=== PATIENT | female | born 1960 | race Caucasian/White ===

== ENCOUNTER 2017-12-08 17:46 | Inpatient (IN) | payer MEDICARE ==
[2017-12-08 18:00] LABS: BASO % 1 % (0-3); EOS # 0.1 x10^3/uL (0.0-0.7); EOS % 1 % (0-3); HEMATOCRIT 43.1 % (36.0-47.0); HEMOGLOBIN 15.1 g/dL (12.0-15.5); LYMPH # 3.8 x10^3/uL (1.0-4.8); LYMPH % 47 % (24-48); MEAN CORPUSCULAR HEMOGLOBIN 31 pg (25-35); MEAN CORPUSCULAR HGB CONC 35 g/dL (31-37); MEAN CORPUSCULAR VOLUME 89 fL (79-100); MONO # 0.4 x10^3/uL (0.0-1.1); MONO % 5 % (0-9); NEUT # 3.8 x10^3uL (1.8-7.7); NEUT % 47 % (31-73); PLATELET COUNT 291 x10^3/uL (140-400); RED BLOOD COUNT 4.84 x10^6/uL (3.50-5.40); RED CELL DISTRIBUTION WIDTH 13.2 % (11.5-14.5); WHITE BLOOD COUNT 8.1 x10^3/uL (4.0-11.0)
[2017-12-08] MEDS ORDERED: ONDANSETRON PF 4 MG/2 ML VIAL. IV PRN (18:00)
[2017-12-08 18:04] VITALS: BP 147/91
[2017-12-08 18:08] LABS: ALBUMIN 3.7 g/dL (3.4-5.0); ALBUMIN/GLOBULIN RATIO 1.2 (1.0-1.7); CALCIUM 8.9 mg/dL (8.5-10.1); CREATININE 0.8 mg/dL (0.6-1.0); GFR 73.4; TOTAL BILIRUBIN 0.4 mg/dL (0.2-1.0); TOTAL PROTEIN 6.8 g/dL (6.4-8.2)
--- NOTE | 2017-12-08 18:08 | EKG ---
[address] [address] Test Date: 2017-12-08 Test Time: 17:00:14 Pat Name: CARLA MCRAE Department: Room: [place] [address] Gender: F Specialty Molder: : 1960 Requested By: YASMANI SIMS Order Number: [id number] Reading MD: Michele Tom MD Measurements Intervals [place] Rate: 63 P: 30 PA: 152 QRS: 7 QRSD: 88 T: 54 QT: 394 QTc: 406 Interpretive Statements SINUS RHYTHM Electronically Signed On 12-09-2017 7:52:22 CDT by Michele Tom MD
[2017-12-08] MEDS ORDERED: CHLO25TA PO (18:12)
[2017-12-08] MEDS ORDERED: METO50TA4 PO (18:12)
[2017-12-08] MEDS ORDERED: ZOLP10TA4 PO (18:12)
[2017-12-08] MEDS ORDERED: AMLO5TAB2 PO (18:12)
[2017-12-08] MEDS ORDERED: WARF-31 PO (18:12)
[2017-12-08] MEDS ORDERED: MORP60CA17 PO (18:12)
[2017-12-08] MEDS ORDERED: CLON1TAB4 PO (18:12)
[2017-12-08] MEDS ORDERED: WARF2TAB96 PO (18:12)
[2017-12-08] MEDS ORDERED: POTA10TA10 PO (18:12)
[2017-12-08] MEDS ORDERED: AMOX50TA PO (18:12)
[2017-12-08] MEDS ORDERED: CLON0.5T11 PO (18:12)
[2017-12-08] MEDS ORDERED: amLODIPine BESYLATE 5 MG TABLET PO SCH (18:45)
[2017-12-08] MEDS ORDERED: METOPROLOL SUCC 24HR ER 50 MG TAB.ER.24H. PO SCH (18:45)
[2017-12-08 19:00] VITALS: BP 118/70
[2017-12-08] MEDS: MORPHINE ER 30 MG TABLET.ER PO SCH (19:05)
[2017-12-08 19:30] LABS: BILIRUBIN,URINE NEG (NEG); CLARITY,URINE HAZY; COLOR,URINE STRAW; GLUCOSE,URINE NEG (NEG); NITRITE,URINE NEG (NEG); UROBILINOGEN,URINE 0.2 mg/dL (0.2 mg/dL)
[2017-12-08 19:31] LABS: BACTERIA,URINE 0 /HPF (0-FEW); SQUAMOUS EPITHELIAL CELL,UR OCC /LPF
[2017-12-08 20:00] VITALS: BP 128/75
[2017-12-08 21:00] VITALS: BP 104/76
[2017-12-08] MEDS ORDERED: clonazePAM 1 MG TABLET PO SCH (21:00)
[2017-12-08] MEDS ORDERED: ZOLPIDEM 5 MG TABLET. PO SCH (21:00)
[2017-12-08] MEDS ORDERED: AMOXAPINE 50 MG PO SCH (21:00)
[2017-12-08 22:00] VITALS: BP 102/71
[2017-12-08] MEDS: ACETAMINOPHEN 500 MG TABLET PO PRN (22:11)
[2017-12-08 23:00] VITALS: BP 92/65
[2017-12-09] VITALS (11 sets, daily range): BP systolic 86–107; BP diastolic 56–69
[2017-12-09] MEDS: MORPHINE ER 30 MG TABLET.ER PO SCH (05:32)
[2017-12-09] MEDS: POTASSIUM CHLORIDE 20 MEQ TABLET.ER. PO SCH ×2 (07:44→11:36)
[2017-12-09] MEDS: ACETAMINOPHEN 500 MG TABLET PO PRN (07:44)
--- NOTE | 2017-12-09 07:52 | RAD ---
Chest, 2 views, 12/08/2017: HISTORY: Chest tightness, heart palpitations, abnormal EKG The heart size and pulmonary vascularity are normal. There are numerous calcified granulomata in both lungs. No pulmonary infiltrate is seen. There is no evidence of pleural fluid. Mild spurring is present in the spine. An inferior vena cava filter is noted in the abdomen. IMPRESSION: 1. Old healed granulomatous disease. 2. No acute cardiopulmonary abnormality is detected. Electronically signed by: Elian Mata MD (12/09/2017 7:49 AM) [facility]
[2017-12-09] MEDS ORDERED: CHLORTHALIDONE 25 MG TABLET PO SCH (09:00)
[2017-12-09] MEDS ORDERED: clonazePAM 0.5 MG TABLET PO SCH (09:00)
[2017-12-09 09:42] LABS: ALBUMIN 3.4 g/dL (3.4-5.0); ALBUMIN/GLOBULIN RATIO 1.3 (1.0-1.7); CREATININE 0.8 mg/dL (0.6-1.0); GFR 73.4; POTASSIUM 3.2 mmol/L (3.5-5.1); TOTAL BILIRUBIN 0.6 mg/dL (0.2-1.0); TOTAL PROTEIN 6.1 g/dL (6.4-8.2)
[2017-12-09] MEDS ORDERED: ELECTROLYTE (ICU) PROTOCOL. MC PRN (09:45)
--- NOTE | 2017-12-09 10:05 | PDOC2 ---
CONSULT Date of Admission DATE: 12/09/17 TIME: 10:05 Reason for Consult: chest pain History of Present Illness Ms Rodriguez is a 57 year old female who was directly admitted to the hospital with complaints of dyspnea, chest pain and PVCs. She reports that her symptoms started early November with pneumonia. She states that she continues to have dyspnea on exertion with chest heaviness that resolves with rest. She denies any symptoms at rest. She also reports feeling skipped heart beats and was told she was having PVCs on EKG at PCP office. She denies any lightheadedness, dizziness or syncope. She reports increased depression and anxiety because she was having no issues prior to the pneumonia and thinks it is taking way too long to return to her baseline. 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")) Pulmonary: Other (histoplasmosis) CENTRAL NERVOUS SYSTEM: Migraine GI: GERD Heme/Onc: Other (Hypercoagulable state (she is unsure Protein c,s or factor 5 deficiency)) Psych: Anxiety, Depression Past Surgical History: Appendectomy, Cholecystectomy, Hysterectomy, Other ( meniscectomy, IVC filter placement, left iliac vein stenting) Family History no history of premature cardiac disease Social History 1/2 ppd smoker, no significant ETOH, no Illicit drugs Current Medications Current Medications Ondansetron HCl (Zofran) 4 mg PRN Q8HRS PRN IV NAUSEA/VOMITING; Start 12/08/17 at 18:00 Clonazepam (KlonoPIN) 0.5 mg DAILY PO Last administered on 12/09/17at 07:44; Start 12/09/17 at 09:00 Amlodipine Besylate (Norvasc) 5 mg DAILY@1700 PO Last administered on at 19:06; Start 12/08/17 at 18:45 Non-Formulary Medication (Amoxapine ) 50 mg HS PO Last administered on at 20:40; Start 12/08/17 at 21:00 Chlorthalidone (Thalitone) 25 mg DAILY PO Last administered on 12/09/17at 07:44 ; Start 12/09/17 at 09:00 Clonazepam (KlonoPIN) 1 mg QHS PO Last administered on 12/08/17at 20:40; Start 12/08/17 at 21:00 Metoprolol Succinate (Toprol Xl) 50 mg DAILY@1700 PO Last administered on at 19:05; Start 12/08/17 at 18:45 Morphine Sulfate (Ms Contin) 60 mg BID@0500,1700 PO Last administered on at 05:32; Start 12/08/17 at 18:45 Potassium Chloride (Klor-Con) 20 meq TIDWMEALS PO Last administered on at 07:44; Start 12/09/17 at 08:00 Non-Formulary Medication (Warfarin Sodium ) 1 mg DAILY16 PO ; Start 12/09/17 at 16:00; Stop 12/09/17 at 16:00; Status DC Non-Formulary Medication (Warfarin Sodium ) 1 tab DAILY16 PO ; Start 12/09/17 at 16:00; Stop 12/09/17 at 16:00; Status DC Zolpidem Tartrate (Ambien) 10 mg QHS PO Last administered on 12/08/17at 20:40; Start 12/08/17 at 21:00 Warfarin Sodium (Coumadin Per Pharmacy) 1 each PRN DAILY PRN MC SEE COMMENTS; Start 12/08/17 at 18:45 Acetaminophen (Tylenol) 500 mg PRN Q6HRS PRN PO PAIN / TEMP Last administered on 12/09/17at 07:44; Start 12/08/17 at 22:15 Info (Icu Electrolyte Protocol) 1 ea CONT PRN PRN MC PER PROTOCOL; Start at 09:45 Active Scripts Active Reported Zolpidem Tartrate 10 Mg Tablet 1 Tab PO QHS Morphine Sulfate Er (Morphine Sulfate) 60 Mg Cap.er.pel 60 Mg PO BID Chlorthalidone 25 Mg Tablet 1 Tab PO DAILY Clonazepam 1 Mg Tablet 1 Tab PO QHS Clonazepam 0.5 Mg Tablet 1 Tab PO DAILY Potassium Chloride 10 Meq Tablet.er 20 Meq PO TID Toprol Xl (Metoprolol Succinate) 50 Mg Tab.er.24h 1 Tab PO DAILY16 Warfarin Sodium 2 Mg Tablet 1 Mg PO DAILY16 Warfarin Sodium 5 Mg Tablet 1 Tab PO DAILY16 Amoxapine 50 Mg Tablet 50 Mg PO HS Amlodipine Besylate 5 Mg Tablet 1 Tab PO DAILY16 Allergies: Coded Allergies: ciprofloxacin (Verified Allergy, Mild, Unknown, 12/08/17) lisinopril (Verified Allergy, Mild, Unknown, 12/08/17) omeprazole (Verified Allergy, Mild, Unknown, 12/08/17) Review of System as per HPI or negative General: Alert, Oriented X3, Cooperative, No acute distress HEENT: Atraumatic, EOMI, Mucous membr. moist/pink Lungs: Other (decreased bases otherwise clear) Heart: Regular rate, Normal S1, Normal S2, Other (no gallops, clicks or rubs) Abdomen: Normal bowel sounds, Soft, No tenderness Extremities: No cyanosis, Normal pulses Neuro: Normal speech, Strength at 5/5 X4 ext Psych/Mental Status: Mental status NL, Mood NL VITALS Vital Signs Date Time Temp Pulse Resp B/P (MAP) Pulse Ox O2 Delivery O2 Flow Rate FiO2 12/09/17 09:52 70 93/69 (77) 12/09/17 09:35 96 Room Air 12/09/17 07:45 98.0 12/09/17 06:00 18 12/08/17 18:04 0.0 Labs Laboratory Tests Test 12/08/17 17:30 12/08/17 18:42 12/09/17 05:53 White Blood Count 8.1 x10^3/uL (4.0-11.0) Red Blood Count 4.84 x10^6/uL (3.50-5.40) Hemoglobin 15.1 g/dL (12.0-15.5) Hematocrit 43.1 % (36.0-47.0) Mean Corpuscular Volume 89 fL (79-100) Mean Corpuscular Hemoglobin 31 pg (25-35) Mean Corpuscular Hemoglobin Concent 35 g/dL (31-37) Red Cell Distribution Width 13.2 % (11.5-14.5) Platelet Count 291 x10^3/uL (140-400) Neutrophils (%) (Auto) 47 % (31-73) Lymphocytes (%) (Auto) 47 % (24-48) Monocytes (%) (Auto) 5 % (0-9) Eosinophils (%) (Auto) 1 % (0-3) Basophils (%) (Auto) 1 % (0-3) Neutrophils # (Auto) 3.8 x10^3uL (1.8-7.7) Lymphocytes # (Auto) 3.8 x10^3/uL (1.0-4.8) Monocytes # (Auto) 0.4 x10^3/uL (0.0-1.1) Eosinophils # (Auto) 0.1 x10^3/uL (0.0-0.7) Basophils # (Auto) 0.0 x10^3/uL (0.0-0.2) Prothrombin Time 38.2 SEC (9.4-11.4) 31.0 SEC (9.4-11.4) Prothromb Time International Ratio 4.1 (0.9-1.1) 3.3 (0.9-1.1) D-Dimer (Lizbeth) < 0.19 mg/L (0.00-0.50) Nasal Screen MRSA (PCR) Negative (Negative) Sodium Level 128 mmol/L (136-145) 128 mmol/L (136-145) Potassium Level 3.0 mmol/L (3.5-5.1) 3.2 mmol/L (3.5-5.1) Chloride Level 91 mmol/L (98-107) 91 mmol/L (98-107) Carbon Dioxide Level 32 mmol/L (21-32) 33 mmol/L (21-32) Anion Gap 5 (6-14) 4 (6-14) Blood Urea Nitrogen 11 mg/dL (7-20) 11 mg/dL (7-20) Creatinine 0.8 mg/dL (0.6-1.0) 0.8 mg/dL (0.6-1.0) Estimated GFR (Cockcroft-Gault) 73.4 73.4 BUN/Creatinine Ratio 14 (6-20) 14 (6-20) Glucose Level 87 mg/dL (70-99) 84 mg/dL (70-99) Lactic Acid Level 1.1 mmol/L (0.4-2.0) Calcium Level 8.9 mg/dL (8.5-10.1) 9.0 mg/dL (8.5-10.1) Magnesium Level 2.0 mg/dL (1.8-2.4) Total Bilirubin 0.4 mg/dL (0.2-1.0) 0.6 mg/dL (0.2-1.0) Aspartate Amino Transf (AST/SGOT) 26 U/L (15-37) 26 U/L (15-37) Alanine Aminotransferase (ALT/SGPT) 31 U/L (14-59) 29 U/L (14-59) Alkaline Phosphatase 66 U/L (46-116) 64 U/L (46-116) Creatine Kinase 79 U/L (26-192) Troponin I Quantitative < 0.017 ng/mL (0-0.055) Total Protein 6.8 g/dL (6.4-8.2) 6.1 g/dL (6.4-8.2) Albumin 3.7 g/dL (3.4-5.0) 3.4 g/dL (3.4-5.0) Albumin/Globulin Ratio 1.2 (1.0-1.7) 1.3 (1.0-1.7) Urine Collection Type Unknown Urine Color Straw Urine Clarity Hazy Urine pH 7.0 Urine Specific [place] 1.010 Urine Protein Neg (NEG-TRACE) Urine Glucose (UA) Neg mg/dL (NEG) Urine Ketones (Stick) Neg mg/dL (NEG) Urine Blood Mod (NEG) Urine Nitrite Neg (NEG) Urine Bilirubin Neg (NEG) Urine Urobilinogen Dipstick 0.2 mg/dL (0.2 mg/dL) Urine Leukocyte Esterase Small (NEG) Urine RBC 1-2 /HPF (0-2) Urine WBC 5-10 /HPF (0-4) Urine Squamous Epithelial Cells Occ /LPF Urine Bacteria 0 /HPF (0-FEW) Images CXR - IMPRESSION: 1. Old healed granulomatous disease. 2. No acute cardiopulmonary abnormality is detected. EKG - sinus rhythm without acute abn Assessment/Plan 1. Exertional chest pain - CE negative x 1 set. No acute abn on EKG. Suggest repeat CE, check echo, check lipids, and plan for MPI to evaluate for IHD. 2. Hypertension - currently mildly hypotensive. Hold antihypertensives. 3. Recent pneumonia - CXR as above. Maintaining Sao2 on room air. 4. hyponatremia - check urine lytes and osmolality. 5. hypokalemia - stop chlorthalidone and start aldactone (may no longer require diuretic for HTN). Replace potassium and repeat BMP. 6. May Thurner syndrome s/p iliac vein stenting and hypercoagulable state - on warfarin with therapeutic INR. Consider change to NOAC. (Check which is cost effective for patient) FLORIAN BOATENG APRN Dec 09, 2017 10:05
[2017-12-09] MEDS ORDERED: NON FORMULARY ITEM (Warfarin Sodium 1 TAB) PO SCH (16:00)
[2017-12-09] MEDS ORDERED: WARFARIN SODIUM 1 MG PO SCH (16:00)
[2017-12-10] MEDS ORDERED: SPIRONOLACTONE 25 MG TABLET PO SCH (09:00)
== END 2017-12-09 12:48 | disposition short-term general hospital (02) | DRG 311 ==
LOC: ICU 17:46
PROVIDERS: ADMIT Family Medicine; ATTEND Family Medicine
DX: I20.8 Other forms of angina pectoris (principal); D68.59 Other primary thrombophilia; E87.1 Hypo-osmolality and hyponatremia; E87.6 Hypokalemia; F32.9 Major depressive disorder, single episode, unspecified; F41.9 Anxiety disorder, unspecified; G43.909 Migraine, unspecified, not intractable, without status migrainosus; F17.210 Nicotine dependence, cigarettes, uncomplicated; I49.3 Ventricular premature depolarization; K21.9 Gastro-esophageal reflux disease without esophagitis; I10 Essential (primary) hypertension; Z87.01 Personal history of pneumonia (recurrent); Z90.710 Acquired absence of both cervix and uterus; Z90.49 Acquired absence of other specified parts of digestive tract; Z88.1 Allergy status to other antibiotic agents; Z88.8 Allergy status to other drugs, medicaments and biological substances; Z79.899 Other long term (current) drug therapy
CPT/HCPCS: 36415; 71046; 80053; 80061; 81001; 82550; 83605; 83735; 84484; 85025; 85379; 85610; 87040; 87641; 93005

== ENCOUNTER 2018-07-15 08:22 | Emergency (ER) | payer MEDICARE ==
[~2018-07-15] VITALS: Ht 165.1 cm; Wt 64.9 kg
[~2018-07-15 08:22] MED LIST: AMLO5TAB10 PO; AMOX50TA PO; CHLO25TA9 PO; CLON0.5T11 PO; CLON1TAB11 PO; METO50TA4 PO; MORP60CA17 PO; POTA10TA10 PO; WARF-31 PO; WARF2TAB96 PO; ZOLP10TA4 PO
[2018-07-15] MEDS ORDERED: IV NORMAL SALINE 1,000ML 1,000 ML IV ONE (08:45)
--- NOTE | 2018-07-15 09:13 | PHYS DOC ---
Adult General Chief Complaint Chief Complaint: DIARRHEA HPI HPI 57-year-old female presents with diarrhea. The patient has had intermittent diarrhea for several months. She has been managed by her primary care physician. The last 2 weeks she has had bouts of very runny diarrhea with little small, formed stool. She was on Flagyl until 2 days ago and the diarrhea slowed down but did not go away. So she stopped the Flagyl it came back as watery diarrhea. Patient has diffuse lower abdominal pain. She is unable to eat very well due to the pain. She has nausea, but no vomiting. She denies fever or chills. She has not been camping. She does not have well water. 2 studies have not been done. All of her intermittent diarrhea started after having a colonoscopy last fall. Review of Systems Review of Systems Constitutional: Denies fever or chills [] Eyes: Denies change in visual acuity, redness, or eye pain [] HENT: Denies nasal congestion or sore throat [] Respiratory: Denies cough or shortness of breath [] Cardiovascular: No additional information not addressed in HPI [] GI: Lower abdominal pain, nausea, diarrhea [] : Denies dysuria or hematuria [] Musculoskeletal: Denies back pain or joint pain [] Integument: Denies rash or skin lesions [] Neurologic: Denies headache, focal weakness or sensory changes [] Endocrine: Denies polyuria or polydipsia [] All other systems were reviewed and found to be within normal limits, except as documented in this note. Current Medications Current Medications Current Medications Medications (Trade) Dose Ordered Sig/Elroy Start Time Stop Time Status Last Admin Dose Admin Iohexol (Omnipaque 300 Mg/ml) 75 ml 1X ONCE 07/15/18 09:15 07/15/18 09:16 Sodium Chloride 1,000 ml @ 1,000 mls/hr 1X ONCE 07/15/18 08:45 07/15/18 09:44 Allergies Allergies Allergies Coded Allergies Type Severity Reaction Last Updated Verified ciprofloxacin Allergy Mild Unknown 07/15/18 Yes lisinopril Allergy Mild Unknown 07/15/18 Yes omeprazole Allergy Mild Unknown 07/15/18 Yes Physical Exam Physical Exam Constitutional: Well developed, well nourished, no acute distress, non-toxic appearance. [] HENT: Normocephalic, atraumatic, bilateral external ears normal, oropharynx moist, no oral exudates, nose normal. [] Eyes: PERRLA, EOMI, conjunctiva normal, no discharge. [] Neck: Normal range of motion, no tenderness, supple, no stridor. [] Cardiovascular:Heart rate regular rhythm, no murmur [] Lungs & Thorax: Bilateral breath sounds clear to auscultation [] Abdomen: Tenderness across the lower abdomen, soft, no rebound or guarding[] Skin: Warm, dry, no erythema, no rash. [] Back: No tenderness, no CVA tenderness. [] Extremities: No tenderness, no cyanosis, no clubbing, ROM intact, no edema. [] Neurologic: Alert and oriented X 3, normal motor function, normal sensory function, no focal deficits noted. [] Psychologic: Affect normal, judgement normal, mood normal. [] EKG EKG [] Radiology/Procedures Radiology/Procedures [] Impressions: CT ABD PELV W/ IV CONTRST ONLY Indication: Lower abdominal pain, diarrhea, history of diverticulitis Technique: Postcontrast CT imaging was performed of the abdomen pelvis, multiplanar reconstruction images submitted. One or more of the following individualized dose reduction techniques were utilized for this examination: 1. Automated exposure control 2. Adjustment of the mA and/or kV according to patient size 3. Use of iterative reconstruction technique. Comparison: Pelvis CT December 17, 2005, no previous abdomen CT available Findings: There are some calcified nodules of the visualized lung bases bilaterally. There has been cholecystectomy. No significant focal abnormality is identified of the pancreas, spleen, liver. There is no adrenal nodularity. Both kidneys enhance. There is right renal pelviectasis/extrarenal pelvis, no significant hydronephrosis of either kidney. Evaluation of bowel is limited without oral contrast. There is retained stool greater of the ascending and transverse colon. There is scattered diverticulosis of the descending and sigmoid colon. There is mild diffuse wall thickening of the sigmoid colon. No free air is identified. Appendix cannot be confidently identified on this exam if still present. There is no defined extra luminal fluid collection. There is some fluid in segments of the nondilated small bowel also with mild diffuse mucosal enhancement. There is stent in region of the left common iliac vein. There is inferior vena cava filter present, fracture of one of the more medial limbs which also courses beyond the expected lumen of the inferior vena cava and courses posterior to the abdominal aorta. There is another more medial limb coursing near the right lateral wall of the abdominal aorta. Other limb tips also project beyond the expected region of the inferior vena cava see. There is advanced degenerative disc disease at L4-5 with vacuum phenomenon. There is sclerotic endplate change at L4-5. There is grade 1 anterior spondylolisthesis at L4-5, multilevel facet degenerative change. There is [id number] narrowing of the right L4-5 neural foramen. IMPRESSION: 1. There is long segment mild wall thickening of the sigmoid colon, multiple diverticula present, considerations of either mild diffuse diverticulitis or colitis of the sigmoid colon. There is also mild small bowel mucosal enhancement and fluid as may be due to enteritis. Appendix cannot be confidently identified to definitively exclude acute appendicitis by imaging although no significant localized pericecal inflammatory type change. There is retained stool greater of the right and transverse colon. 2. There is inferior vena cava filter present with fracture of more medial limb, also tips project beyond the expected region of the see as stated including 2 of the limbs near the abdominal aorta. 3. There is more advanced degenerative disc disease L4-5, also grade 1 anterior spondylolisthesis at this level due to facet degenerative change. Electronically signed by: Sae Caldera MD (07/15/2018 9:45 AM) [facility] DICTATED AND SIGNED BY: SAE CALDERA MD DATE: 07/15/18 0945 CC: LOREE COLLINS DO; YASMANI SIMS MD Course & Med Decision Making Course & Med Decision Making Pertinent Labs and Imaging studies reviewed. (See chart for details) The patient's labs are significant for sodium 128. Review of her chart shows her sodium is always 128. Her CBC differential does show elevated lymphocytes and monocytes. Patient's CT scan shows possible diverticulitis and small bowel enteritis. There are other significant findings. See official report for details. I will treat her with Augmentin for 10 days. [] Dragon Disclaimer Dragon Disclaimer This electronic medical record was generated, in whole or in part, using a voice recognition dictation system. Departure Departure: Disposition: 01 HOME, SELF-CARE Condition: STABLE Referrals: YASMANI SIMS MD (PCP) Patient Instructions: Diverticulitis, [id number] Scripts Amoxicillin/Potassium Clav (AUGMENTIN 875-125 TABLET) 1 Each Tablet 1 TAB PO BID for diverticulitis, #20 TAB Prov: LOREE COLLINS DO 07/15/18 LOREE COLLINS DO Jul 15, 2018 09:13
[2018-07-15 09:15] LABS: BASO % 1 % (0-3); EOS # 0.1 x10^3/uL (0.0-0.7); EOS % 3 % (0-3); HEMATOCRIT 44.6 % (36.0-47.0); HEMOGLOBIN 15.6 g/dL (12.0-15.5); LYMPH # 2.5 x10^3/uL (1.0-4.8); LYMPH % 60 % (24-48); MEAN CORPUSCULAR HEMOGLOBIN 31 pg (25-35); MEAN CORPUSCULAR HGB CONC 35 g/dL (31-37); MEAN CORPUSCULAR VOLUME 87 fL (79-100); MONO # 0.4 x10^3/uL (0.0-1.1); MONO % 10 % (0-9); NEUT # 1.1 x10^3uL (1.8-7.7); NEUT % 26 % (31-73); PLATELET COUNT 254 x10^3/uL (140-400); RED BLOOD COUNT 5.11 x10^6/uL (3.50-5.40); RED CELL DISTRIBUTION WIDTH 13.4 % (11.5-14.5); WHITE BLOOD COUNT 4.2 x10^3/uL (4.0-11.0)
[2018-07-15] MEDS ORDERED: IOHEXOL 300 MG/ML 75 ML VIAL. IV ONE (09:15)
[2018-07-15 09:29] LABS: ALBUMIN 3.4 g/dL (3.4-5.0); ALBUMIN/GLOBULIN RATIO 1.1 (1.0-1.7); CALCIUM 8.9 mg/dL (8.5-10.1); CREATININE 0.9 mg/dL (0.6-1.0); GFR 64.1; POTASSIUM 3.6 mmol/L (3.5-5.1); TOTAL BILIRUBIN 0.4 mg/dL (0.2-1.0); TOTAL PROTEIN 6.5 g/dL (6.4-8.2)
[2018-07-15 09:30] VITALS: BP 113/66
[2018-07-15 09:46] LABS: BACTERIA,URINE 0 /HPF (0-FEW); BILIRUBIN,URINE NEG (NEG); CLARITY,URINE CLEAR; COLOR,URINE YELLOW; GLUCOSE,URINE NEG (NEG); NITRITE,URINE NEG (NEG); RBC,URINE 0 /HPF (0-2); UROBILINOGEN,URINE 0.2 mg/dL (0.2 mg/dL); WBC,URINE 0 /HPF (0-4)
--- NOTE | 2018-07-15 09:48 | RAD ---
CT ABD PELV W/ IV CONTRST ONLY Indication: Lower abdominal pain, diarrhea, history of diverticulitis Technique: Postcontrast CT imaging was performed of the abdomen pelvis, multiplanar reconstruction images submitted. One or more of the following individualized dose reduction techniques were utilized for this examination: 1. Automated exposure control 2. Adjustment of the mA and/or kV according to patient size 3. Use of iterative reconstruction technique. Comparison: Pelvis CT December 17, 2005, no previous abdomen CT available Findings: There are some calcified nodules of the visualized lung bases bilaterally. There has been cholecystectomy. No significant focal abnormality is identified of the pancreas, spleen, liver. There is no adrenal nodularity. Both kidneys enhance. There is right renal pelviectasis/extrarenal pelvis, no significant hydronephrosis of either kidney. Evaluation of bowel is limited without oral contrast. There is retained stool greater of the ascending and transverse colon. There is scattered diverticulosis of the descending and sigmoid colon. There is mild diffuse wall thickening of the sigmoid colon. No free air is identified. Appendix cannot be confidently identified on this exam if still present. There is no defined extra luminal fluid collection. There is some fluid in segments of the nondilated small bowel also with mild diffuse mucosal enhancement. There is stent in region of the left common iliac vein. There is inferior vena cava filter present, fracture of one of the more medial limbs which also courses beyond the expected lumen of the inferior vena cava and courses posterior to the abdominal aorta. There is another more medial limb coursing near the right lateral wall of the abdominal aorta. Other limb tips also project beyond the expected region of the inferior vena cava see. There is advanced degenerative disc disease at L4-5 with vacuum phenomenon. There is sclerotic endplate change at L4-5. There is grade 1 anterior spondylolisthesis at L4-5, multilevel facet degenerative change. There is [id number]-tz-[id number] narrowing of the right L4-5 neural foramen. IMPRESSION: 1. There is long segment mild wall thickening of the sigmoid colon, multiple diverticula present, considerations of either mild diffuse diverticulitis or colitis of the sigmoid colon. There is also mild small bowel mucosal enhancement and fluid as may be due to enteritis. Appendix cannot be confidently identified to definitively exclude acute appendicitis by imaging although no significant localized pericecal inflammatory type change. There is retained stool greater of the right and transverse colon. 2. There is inferior vena cava filter present with fracture of more medial limb, also tips project beyond the expected region of the see as stated including 2 of the limbs near the abdominal aorta. 3. There is more advanced degenerative disc disease L4-5, also grade 1 anterior spondylolisthesis at this level due to facet degenerative change. Electronically signed by: Brian Parsons MD (07/15/2018 9:45 AM) [facility]
[2018-07-15] MEDS ORDERED: AMOX1TAB61 PO (10:15)
== END 2018-07-15 10:25 | disposition home or self-care (01) ==
LOC: ER 08:22
DX: R19.7 Diarrhea, unspecified (principal); R10.84 Generalized abdominal pain; R11.0 Nausea; D72.820 Lymphocytosis (symptomatic); D72.821 Monocytosis (symptomatic); M43.16 Spondylolisthesis, lumbar region; Z88.1 Allergy status to other antibiotic agents; Z88.8 Allergy status to other drugs, medicaments and biological substances
CPT/HCPCS: 36415; 74177; 80053; 81001; 85025; 96360; 99284; Q9967; J7030

== ENCOUNTER 2018-07-22 12:12 | Inpatient (IN) | payer MEDICARE ==
[~2018-07-22] VITALS: Ht 165.1 cm; Wt 61.7 kg
[~2018-07-22 12:12] MED LIST changes: +AMOX1TAB61 PO
[2018-07-22 12:18] VITALS: BP 126/77
[2018-07-22] MEDS ORDERED: POTA20TA4 PO (13:31)
[2018-07-22 14:21] LABS: BASO % 1 % (0-3); EOS # 0.1 x10^3/uL (0.0-0.7); EOS % 2 % (0-3); HEMATOCRIT 44.5 % (36.0-47.0); HEMOGLOBIN 15.8 g/dL (12.0-15.5); LYMPH # 2.6 x10^3/uL (1.0-4.8); LYMPH % 44 % (24-48); MEAN CORPUSCULAR HEMOGLOBIN 31 pg (25-35); MEAN CORPUSCULAR HGB CONC 35 g/dL (31-37); MEAN CORPUSCULAR VOLUME 88 fL (79-100); MONO # 0.4 x10^3/uL (0.0-1.1); MONO % 7 % (0-9); NEUT # 2.7 x10^3uL (1.8-7.7); NEUT % 47 % (31-73); PLATELET COUNT 305 x10^3/uL (140-400); RED BLOOD COUNT 5.08 x10^6/uL (3.50-5.40); RED CELL DISTRIBUTION WIDTH 14.1 % (11.5-14.5); WHITE BLOOD COUNT 5.9 x10^3/uL (4.0-11.0)
[2018-07-22] MEDS ORDERED: IV 1/2 NORMAL SALINE 1,000 ML IV PRN (14:30)
[2018-07-22 14:31] LABS: BILIRUBIN,URINE NEG (NEG); CLARITY,URINE HAZY; COLOR,URINE AMBER; GLUCOSE,URINE NEG (NEG)
[2018-07-22 14:32] LABS: BACTERIA,URINE 0 /HPF (0-FEW); NITRITE,URINE NEG (NEG); SQUAMOUS EPITHELIAL CELL,UR FEW /LPF; UROBILINOGEN,URINE 1 mg/dL (0.2 mg/dL)
[2018-07-22 14:40] LABS: ALBUMIN 3.7 g/dL (3.4-5.0); ALBUMIN/GLOBULIN RATIO 1.1 (1.0-1.7); CALCIUM 8.9 mg/dL (8.5-10.1); CREATININE 0.9 mg/dL (0.6-1.0); GFR 64.1; POTASSIUM 3.5 mmol/L (3.5-5.1); TOTAL BILIRUBIN 0.5 mg/dL (0.2-1.0); TOTAL PROTEIN 7.1 g/dL (6.4-8.2)
[2018-07-22 15:12] VITALS: BP 128/83
[2018-07-22] MEDS ORDERED: WARFARIN 1 MG TABLET. PO SCH (16:00)
[2018-07-22] MEDS ORDERED: WARFARIN 5 MG TABLET. PO SCH (16:00)
[2018-07-22] MEDS ORDERED: ONDANSETRON PF 4 MG/2 ML VIAL. IV PRN (16:15)
[2018-07-22] MEDS: IV NORMAL SALINE 1,000ML 1,000 ML IV SCH (16:35)
[2018-07-22] MEDS: KETOROLAC 30 MG/ML VIAL. IV PRN ×2 (16:35→22:37)
[2018-07-22] MEDS: CLINDAMYCIN 600MG PREMIX 50 ML IV SCH ×2 (16:37→22:00)
[2018-07-22] MEDS: METOPROLOL SUCC 24HR ER 50 MG TAB.ER.24H. PO SCH (16:37)
[2018-07-22] MEDS: CEFEPIME HCL 2 GM in IV NORMAL SALINE 100ML 100 ML IV SCH (16:38)
[2018-07-22] MEDS: MORPHINE ER 30 MG TABLET.ER PO SCH (18:30)
[2018-07-22] MEDS: POTASSIUM CHLORIDE 20 MEQ TABLET.ER. PO SCH (18:30)
--- NOTE | 2018-07-22 18:50 | NUR ---
The patient, CARLA MCRAE, 57 y/o, F admitted by YASMANI SIMS MD, was given written information regarding hospital policies, unit procedures and contact persons. Pt ambulated to room 120 accompanied by spouse. Valuables were checked and vitals taken, head to toe assessed. Pt resting at time of this note.
[2018-07-22] MEDS: ZOLPIDEM 5 MG TABLET. PO SCH ×2 (21:00→22:24)
[2018-07-22] MEDS ORDERED: POTASSIUM CHLORIDE 20 MEQ TABLET.ER. PO SCH (21:00)
[2018-07-22] MEDS ORDERED: MORPHINE ER 30 MG TABLET.ER PO SCH (21:00)
[2018-07-22] MEDS: AMOXAPINE 50 MG PO SCH (21:00)
[2018-07-22 21:06] VITALS: BP 108/65
[2018-07-22] MEDS: clonazePAM 1 MG TABLET PO SCH (22:24)
[2018-07-23] MEDS: IV NORMAL SALINE 1,000ML 1,000 ML IV SCH ×2 (05:38→12:58)
[2018-07-23] MEDS: CEFEPIME HCL 2 GM in IV NORMAL SALINE 100ML 100 ML IV SCH ×2 (05:38→17:37)
[2018-07-23] MEDS: POTASSIUM CHLORIDE 20 MEQ TABLET.ER. PO SCH ×2 (05:39→17:37)
[2018-07-23] MEDS: CLINDAMYCIN 600MG PREMIX 50 ML IV SCH ×3 (05:40→22:00)
[2018-07-23] MEDS: MORPHINE ER 30 MG TABLET.ER PO SCH ×2 (05:40→17:38)
[2018-07-23 06:07] VITALS: BP 92/49
[2018-07-23] MEDS: CHLORTHALIDONE 25 MG TABLET PO SCH (08:17)
[2018-07-23] MEDS: clonazePAM 0.5 MG TABLET PO SCH (08:17)
[2018-07-23] MEDS: KETOROLAC 30 MG/ML VIAL. IV PRN ×2 (10:19→19:14)
[2018-07-23 10:33] VITALS: BP 107/72
[2018-07-23 14:40] VITALS: BP 125/75
[2018-07-23] MEDS: METOPROLOL SUCC 24HR ER 50 MG TAB.ER.24H. PO SCH (17:38)
[2018-07-23 19:40] VITALS: BP 122/74
[2018-07-23] MEDS: AMOXAPINE 50 MG PO SCH (21:00)
[2018-07-23] MEDS: ZOLPIDEM 5 MG TABLET. PO SCH (21:54)
[2018-07-23] MEDS: clonazePAM 1 MG TABLET PO SCH (21:54)
[2018-07-23] MEDS: LACTOBACILLUS RHAMNOSUS GG 1 CAPSULE. PO SCH (21:58)
[2018-07-23 22:42] VITALS: BP 124/73
--- NOTE | 2018-07-23 22:59 | PN ---
DATE: SUBJECTIVE: The patient continues to make fairly good progress overall. The patient has a history of diverticulitis to the descending colon. The patient concerned about a vena cava filter, told her will refer back to Dr. Stroud, the vascular surgeon, who took care of that, but that is not what is giving her the pain. The patient has also failed outpatient oral antibiotics. OBJECTIVE: VITAL SIGNS: Blood pressure 107/72, respiratory rate 20, pulse 60, afebrile. GENERAL: The patient is alert and oriented. LUNGS: Clear. CARDIOVASCULAR: Stable. ABDOMEN: Markedly tender in the left mid to left lower quadrant area. Continue with IV antibiotic therapy. IMPRESSION: Diverticulitis, colitis, hematuria, chronic clotting abnormalities. PLAN: The patient continues to be monitored carefully, make further evaluation on her as indicated. YASMANI SIMS MD DR: MALA/dann JOB#: [id number] / [id number]
[2018-07-24] MEDS: CEFEPIME HCL 2 GM in IV NORMAL SALINE 100ML 100 ML IV SCH ×2 (05:14→17:55)
[2018-07-24] MEDS: IV NORMAL SALINE 1,000ML 1,000 ML IV SCH ×3 (05:15→18:04)
[2018-07-24] MEDS: POTASSIUM CHLORIDE 20 MEQ TABLET.ER. PO SCH ×2 (06:04→18:03)
[2018-07-24] MEDS: MORPHINE ER 30 MG TABLET.ER PO SCH ×2 (06:04→17:54)
[2018-07-24] MEDS: CLINDAMYCIN 600MG PREMIX 50 ML IV SCH ×3 (06:05→21:04)
[2018-07-24 06:20] VITALS: BP 112/67
[2018-07-24] MEDS: CHLORTHALIDONE 25 MG TABLET PO SCH (08:58)
[2018-07-24] MEDS: clonazePAM 0.5 MG TABLET PO SCH (08:58)
[2018-07-24] MEDS: LACTOBACILLUS RHAMNOSUS GG 1 CAPSULE. PO SCH ×2 (08:58→21:04)
[2018-07-24] MEDS: KETOROLAC 30 MG/ML VIAL. IV PRN ×2 (10:58→21:05)
[2018-07-24 11:10] VITALS: BP 138/78
[2018-07-24 14:42] VITALS: BP 112/68
[2018-07-24] MEDS: METOPROLOL SUCC 24HR ER 50 MG TAB.ER.24H. PO SCH (17:54)
--- NOTE | 2018-07-24 18:32 | NUR ---
PT AMBULATED HALLS AND SHOWERED TODAY. REMAINS ON CLAR LIQUID DIET, IV ABX AND FLUIDS.
[2018-07-24 19:10] VITALS: BP 126/77
[2018-07-24] MEDS: AMOXAPINE 50 MG PO SCH (21:00)
[2018-07-24] MEDS: ZOLPIDEM 5 MG TABLET. PO SCH (21:04)
[2018-07-24] MEDS: clonazePAM 1 MG TABLET PO SCH (21:04)
[2018-07-24 23:06] VITALS: BP 111/69
--- NOTE | 2018-07-25 03:50 | PN ---
DATE: 07/24/2018 SUBJECTIVE: The patient is resting fairly comfortably. Pain much improved. Still receiving IV antibiotic therapy. C. diff negative, but the patient does seem to be making better progress. PHYSICAL EXAMINATION: VITAL SIGNS: Blood pressure 112/70, respiratory rate 20, pulse 62, afebrile. GENERAL: The patient is alert and oriented. LUNGS: Diminished throughout, poor movement of air. CARDIOVASCULAR: Regular sinus rhythm, S1, S2. ABDOMEN: Soft with definite tenderness, but markedly improved from where it was. EXTREMITIES: Without clubbing, cyanosis, nor edema. IMPRESSION: Acute diverticulitis. PLAN: As above. Continue to monitor the patient. Continue on IV antibiotic therapy, failure of outpatient therapy. YASMANI SIMS MD DR: MALA/dann JOB#: [id number] / [id number]
[2018-07-25] MEDS: CLINDAMYCIN 600MG PREMIX 50 ML IV SCH (05:07)
[2018-07-25] MEDS: CEFEPIME HCL 2 GM in IV NORMAL SALINE 100ML 100 ML IV SCH (05:07)
[2018-07-25] MEDS: MORPHINE ER 30 MG TABLET.ER PO SCH (05:15)
[2018-07-25] MEDS: POTASSIUM CHLORIDE 20 MEQ TABLET.ER. PO SCH (05:16)
[2018-07-25 05:36] VITALS: BP 132/82
[2018-07-25] MEDS: IV NORMAL SALINE 1,000ML 1,000 ML IV SCH (05:40)
[2018-07-25] MEDS: LACTOBACILLUS RHAMNOSUS GG 1 CAPSULE. PO SCH (08:21)
[2018-07-25] MEDS: clonazePAM 0.5 MG TABLET PO SCH (08:21)
[2018-07-25] MEDS: CHLORTHALIDONE 25 MG TABLET PO SCH (08:21)
[2018-07-25] MEDS ORDERED: POTASSIUM CHLORIDE 20 MEQ TABLET.ER. PO SCH (09:00)
[2018-07-25] MEDS: KETOROLAC 30 MG/ML VIAL. IV PRN (09:48)
[2018-07-25 10:35] VITALS: BP_SYST 142; BP_SYST 148; BP_DIAS 81; BP_DIAS 82
--- NOTE | 2018-07-25 12:05 | NUR ---
Discharge Note: CARLA MCRAE [address] Discharge instructions and discharge home medications reviewed with CURTIS Quinonez RN, and a copy given. All questions have been answered and understanding verbalized. The following instructions and handouts were given: medications, labs, imaging, diet, activity, and plan of care. Discontinued lines and drains: peripheral IV discontinued with no complications. Patient discharged to [facility] via EMS.
--- NOTE | 2018-08-04 09:24 | DS ---
DATE OF DISCHARGE: 07/25/2018 HOSPITAL COURSE: The patient admitted with severe diverticulitis. The patient has been seen in the Emergency Room, they told her to go home. She was treated as an outpatient. She does get progressively worse. She was brought in for IV antibiotic therapy. She made some progress, but still continued to have pain. She was transferred down to [place] for a GI consult and make further evaluation on her as indicated there. IMPRESSION: Diverticulitis, hematuria, chronic clotting abnormality. See MRAD. Decreased activity and transferred down to [place]. YASMANI SIMS MD DR: MALA/dann JOB#: [id number] / [id number]
== END 2018-07-25 12:00 | disposition short-term general hospital (02) | DRG 392 ==
LOC: 1 SOUTH 12:12
PROVIDERS: ADMIT Family Medicine; ATTEND Family Medicine
DX: K57.92 Diverticulitis of intestine, part unspecified, without perforation or abscess without bleeding (principal); K52.9 Noninfective gastroenteritis and colitis, unspecified; R31.9 Hematuria, unspecified; F17.210 Nicotine dependence, cigarettes, uncomplicated; Z90.710 Acquired absence of both cervix and uterus; Z88.1 Allergy status to other antibiotic agents
CPT/HCPCS: 36415; 80053; 81001; 85025; 85610; 87493; J0692; J1885; J2405; J3490; J7030

== ENCOUNTER → 2018-08-15 | Outpatient (CLI) | payer MEDICARE ==
[2018-07-25 10:35] VITALS: BP 142/81
[~2018-08-15] MED LIST changes: +IOHEXOL 300 MG/ML 75 ML VIAL. IV ONE; +LACT1CAP21 PO; +POTA20TA4 PO
--- NOTE | 2018-08-15 14:47 | RAD ---
Examination: CT chest with IV contrast HISTORY: History of weight loss, tobacco use for 40 years TECHNIQUE: Axial CT images of chest were performed with IV contrast. Coronal and sagittal reformats are performed Exposure: One or more of the following individualized dose reduction techniques were utilized for this examination: 1. Automated exposure control 2. Adjustment of the mA and/or kV according to patient size 3. Use of iterative reconstruction technique FINDINGS: The visualized thyroid gland grossly appears unremarkable the central airways are patent. The heart size grossly appears unremarkable. Coronary artery calcifications. Few enlarged calcified mediastinal and bilateral hilar lymph nodes identified. There are multiple scattered calcified granulomas identified in the lungs. Minimal bibasilar lung atelectasis. The visualized liver, spleen, adrenals grossly appears unremarkable. Mild degenerative changes thoracic spine. IMPRESSION: 1. Multiple scattered calcified granulomas identified in the bilateral lungs. There are calcified lymph nodes identified in the bilateral hilar and mediastinal region likely secondary to granulomatous disease. 2. Coronary artery calcifications. 3. Cholecystectomy changes. Electronically signed by: Des Jimenez MD (08/15/2018 2:44 PM) [id number]
== END | disposition home or self-care (01) ==
LOC: CT 10:06
PROVIDERS: ATTEND Internal Medicine
DX: I25.10 Atherosclerotic heart disease of native coronary artery without angina pectoris (principal); R91.8 Other nonspecific abnormal finding of lung field; J98.11 Atelectasis; M47.814 Spondylosis without myelopathy or radiculopathy, thoracic region; Z90.49 Acquired absence of other specified parts of digestive tract; Z72.0 Tobacco use
CPT/HCPCS: 71260; Q9967

== ENCOUNTER 2018-09-07 16:46 | Inpatient (IN) | payer MEDICARE ==
[~2018-09-07] VITALS: Ht 165.1 cm; Wt 63.2 kg
[~2018-09-07 16:46] MED LIST changes: -IOHEXOL 300 MG/ML 75 ML VIAL. IV ONE; -LACT1CAP21 PO
[2018-09-07 17:09] VITALS: BP 119/72
[2018-09-07] MEDS ORDERED: IOHEXOL 240 MG/ML 50ML VIAL. ONE (17:23)
[2018-09-07] MEDS ORDERED: METOPROLOL SUCC 24HR ER 50 MG TAB.ER.24H. PO SCH (17:30)
[2018-09-07] MEDS ORDERED: ONDANSETRON ODT 4 MG TAB.RAPDIS PO PRN (17:30)
[2018-09-07] MEDS ORDERED: fentaNYL PF 250 MCG/5 ML VIAL IV ONE (17:30)
[2018-09-07 17:37] LABS: BASO % 0 % (0-3); EOS # 0.1 x10^3/uL (0.0-0.7); EOS % 1 % (0-3); HEMOGLOBIN 14.5 g/dL (12.0-15.5); LYMPH # 3.5 x10^3/uL (1.0-4.8); LYMPH % 46 % (24-48); MEAN CORPUSCULAR HEMOGLOBIN 30 pg (25-35); MEAN CORPUSCULAR HGB CONC 34 g/dL (31-37); MEAN CORPUSCULAR VOLUME 90 fL (79-100); MONO # 0.7 x10^3/uL (0.0-1.1); MONO % 10 % (0-9); NEUT # 3.3 x10^3uL (1.8-7.7); NEUT % 43 % (31-73); PLATELET COUNT 307 x10^3/uL (140-400); RED BLOOD COUNT 4.79 x10^6/uL (3.50-5.40); RED CELL DISTRIBUTION WIDTH 14.7 % (11.5-14.5); WHITE BLOOD COUNT 7.5 x10^3/uL (4.0-11.0)
[2018-09-07 17:49] LABS: ALBUMIN 3.6 g/dL (3.4-5.0); ALBUMIN/GLOBULIN RATIO 0.9 (1.0-1.7); CALCIUM 9.2 mg/dL (8.5-10.1); CREATININE 0.8 mg/dL (0.6-1.0); GFR 73.2; TOTAL BILIRUBIN 0.2 mg/dL (0.2-1.0); TOTAL PROTEIN 7.5 g/dL (6.4-8.2)
[2018-09-07] MEDS: IV NORMAL SALINE 1,000ML 1,000 ML IV SCH (17:55)
[2018-09-07] MEDS ORDERED: IOHEXOL 300 MG/ML 75 ML VIAL. IV ONE (18:30)
[2018-09-07 19:05] LABS: BACTERIA,URINE 0 /HPF (0-FEW); BILIRUBIN,URINE NEG (NEG); CLARITY,URINE CLEAR; COLOR,URINE YELLOW; GLUCOSE,URINE NEG (NEG); NITRITE,URINE NEG (NEG); RBC,URINE OCC /HPF (0-2); UROBILINOGEN,URINE 0.2 mg/dL (0.2 mg/dL); WBC,URINE 0 /HPF (0-4)
[2018-09-07 19:06] LABS: SQUAMOUS EPITHELIAL CELL,UR OCC /LPF
[2018-09-07 19:35] VITALS: BP 118/75
--- NOTE | 2018-09-07 20:56 | RAD ---
CT ABD PELV W/ORAL IV CONTRAST Indication: Abdominal pain, nausea and vomiting Technique: Postcontrast CT imaging was performed of the abdomen pelvis, multiplanar reconstruction images submitted. Oral contrast was also given. One or more of the following individualized dose reduction techniques were utilized for this examination: 1. Automated exposure control 2. Adjustment of the mA and/or kV according to patient size 3. Use of iterative reconstruction technique. Comparison: July 15, 2018 Findings: There are some calcified granulomas of the lung bases bilaterally. There again has been cholecystectomy. No new focal abnormality is identified of the liver, pancreas, spleen. There is again small right adrenal nodule difficult to accurately characterize about 0.5 cm. Both kidneys enhance, no hydronephrosis. 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 Limb tips again protrude beyond the expected lumen. The small bowel is not dilated. There is now fluid within the colon. There is likely mild long segment wall thickening of the sigmoid colon. It should be noted that the colon is not opacified with oral contrast during exam. There is also likely degree of mild wall enhancement of the descending colon. However previously there was a greater degree of wall thickening of the descending and sigmoid colon. No free air is identified. There is no new significant localized extraluminal fluid collection or free fluid. Reportedly there has been appendectomy. There is advanced degenerative disc disease at L4-5 as seen previously, again grade 1 anterior spondylolisthesis at this level. There is multilevel lumbar facet degenerative change. There is fairly severe narrowing of the right L4-5 neural foramen. IMPRESSION: 1. There is degree of persistent although overall decreased wall thickening of the descending and sigmoid colon as could be due to sequela of colitis, no new extraluminal fluid collection. There is fluid in the colon as may be associated with diarrheal state and colitis. 2. There is again abnormality of the inferior vena cava filter as stated. Electronically signed by: Brian Parsons MD (09/07/2018 8:53 PM) [facility]
[2018-09-07] MEDS ORDERED: POTASSIUM CHLORIDE 20 MEQ TABLET.ER. PO SCH (21:00)
[2018-09-07] MEDS: MORPHINE ER 30 MG TABLET.ER PO SCH (21:00)
[2018-09-07] MEDS: ZOLPIDEM 5 MG TABLET. PO SCH (21:30)
[2018-09-07] MEDS: clonazePAM 0.5 MG TABLET PO SCH (21:31)
[2018-09-07] MEDS: AMOXAPINE 50 MG PO SCH (21:41)
[2018-09-07 22:10] VITALS: BP 104/70
[2018-09-08] VITALS (7 sets, daily range): BP systolic 86–113; BP diastolic 55–75
[2018-09-08] MEDS ORDERED: AMLO5TAB10 PO (05:34)
[2018-09-08] MEDS ORDERED: LACT1CAP21 PO (05:35)
[2018-09-08 06:35] LABS: BASO % 0 % (0-3); EOS # 0.1 x10^3/uL (0.0-0.7); EOS % 2 % (0-3); HEMATOCRIT 38.7 % (36.0-47.0); HEMOGLOBIN 13.1 g/dL (12.0-15.5); LYMPH # 2.6 x10^3/uL (1.0-4.8); LYMPH % 50 % (24-48); MEAN CORPUSCULAR HEMOGLOBIN 30 pg (25-35); MEAN CORPUSCULAR HGB CONC 34 g/dL (31-37); MEAN CORPUSCULAR VOLUME 90 fL (79-100); MONO # 0.6 x10^3/uL (0.0-1.1); MONO % 13 % (0-9); NEUT # 1.8 x10^3uL (1.8-7.7); NEUT % 35 % (31-73); PLATELET COUNT 262 x10^3/uL (140-400); RED CELL DISTRIBUTION WIDTH 14.7 % (11.5-14.5); WHITE BLOOD COUNT 5.2 x10^3/uL (4.0-11.0)
[2018-09-08 06:37] LABS: CALCIUM 8.5 mg/dL (8.5-10.1); CREATININE 0.7 mg/dL (0.6-1.0); GFR 85.4
[2018-09-08] MEDS: MORPHINE ER 30 MG TABLET.ER PO SCH ×2 (08:34→21:27)
[2018-09-08] MEDS: clonazePAM 0.5 MG TABLET PO SCH ×2 (08:34→21:28)
[2018-09-08] MEDS: IV NORMAL SALINE 1,000ML 1,000 ML IV SCH ×2 (08:35→17:38)
[2018-09-08] MEDS: AMOXAPINE 50 MG PO SCH ×2 (09:00→21:26)
[2018-09-08] MEDS ORDERED: CHLORTHALIDONE 25 MG TABLET PO SCH (09:00)
[2018-09-08] MEDS ORDERED: NON FORMULARY ITEM (Warfarin Sodium 1 TAB) PO SCH (16:00)
[2018-09-08] MEDS ORDERED: WARFARIN SODIUM 1 MG PO SCH (16:00)
--- NOTE | 2018-09-08 19:45 | PN ---
DATE: 09/08/2018 SUBJECTIVE: The patient resting fairly comfortably. The patient admitted with severe diarrhea up to 10 stools a day, been having abdominal cramping, abdominal pain, started to be treated as an outpatient. OBJECTIVE: VITAL SIGNS: However; blood pressure dropped down to approximately 86/50, respiratory rate 20, pulse 64, afebrile. LUNGS: Diminished, but clear. CARDIOVASCULAR: Stable. ABDOMEN: Soft, nontender. The patient continues to be monitored, given IV fluids to maintain her blood pressure and monitor her blood pressure as well as number of stools, C. diff is pending. We will make further evaluation on that as we get those results. IMPRESSION: Diarrhea, hypertension, dehydration, colitis. PLAN: As above. YASMANI SIMS MD DR: MALA/dann JOB#: [id number] / [id number]
[2018-09-08] MEDS: LACTOBACILLUS RHAMNOSUS GG 1 CAPSULE. PO SCH (21:27)
[2018-09-08] MEDS: ZOLPIDEM 5 MG TABLET. PO SCH (21:28)
[2018-09-09] MEDS: IV NORMAL SALINE 1,000ML 1,000 ML IV SCH ×2 (05:08→22:50)
[2018-09-09 05:41] VITALS: BP 109/69
[2018-09-09] MEDS: LACTOBACILLUS RHAMNOSUS GG 1 CAPSULE. PO SCH ×2 (08:54→20:32)
[2018-09-09] MEDS: clonazePAM 0.5 MG TABLET PO SCH ×2 (08:54→20:32)
[2018-09-09] MEDS: MORPHINE ER 30 MG TABLET.ER PO SCH ×2 (08:54→20:32)
[2018-09-09] MEDS: AMOXAPINE 50 MG PO SCH ×2 (09:00→20:32)
[2018-09-09 11:02] VITALS: BP 101/63
--- NOTE | 2018-09-09 12:48 | PN ---
DATE: SUBJECTIVE: The patient with diverticulitis, recurrent. The patient says she is having 10 bowel movements a day, although not recorded. She has been flushing down the toilet. She has also had an elevated INR of 6, is down to 2.5. Hemoglobin remained basically stable. Vital signs are good. OBJECTIVE: VITAL SIGNS: Blood pressure 110/70, respiratory rate 18, pulse 66, afebrile. GENERAL: The patient is alert and oriented. LUNGS: Diminished throughout, but clear. CARDIOVASCULAR: Stable. ABDOMEN: Soft. Definite tenderness in the abdominal area. RECTAL: The patient also notes some possible coffee-ground stools. We will go ahead and get a fecal Hemoccult on her there. IMPRESSION: Diverticulitis, recurrent diarrhea as well as abdominal pain, possible gastrointestinal bleed. PLAN: As above. YASMANI SIMS MD DR: MALA/dann JOB#: [id number] / [id number]
[2018-09-09 14:06] LABS: SODIUM, URINE <60 mmol/L (Not Estab.); UR POTASSIUM 40.9 mmol/L (Not Estab.)
[2018-09-09 15:52] VITALS: BP 108/68
[2018-09-09] MEDS ORDERED: WARFARIN 3 MG TABLET. PO ONE (16:00)
[2018-09-09 19:20] VITALS: BP 110/74
[2018-09-09] MEDS: ZOLPIDEM 5 MG TABLET. PO SCH (20:32)
[2018-09-09 22:59] LABS: FECAL OB PT NEGATIVE (NEG)
[2018-09-09 23:29] VITALS: BP 99/59
[2018-09-10 05:27] VITALS: BP 111/68
[2018-09-10 07:31] LABS: BASO % 0 % (0-3); EOS # 0.1 x10^3/uL (0.0-0.7); EOS % 1 % (0-3); HEMATOCRIT 34.7 % (36.0-47.0); HEMOGLOBIN 11.8 g/dL (12.0-15.5); LYMPH # 2.4 x10^3/uL (1.0-4.8); LYMPH % 39 % (24-48); MEAN CORPUSCULAR HEMOGLOBIN 30 pg (25-35); MEAN CORPUSCULAR HGB CONC 34 g/dL (31-37); MEAN CORPUSCULAR VOLUME 89 fL (79-100); MONO # 0.5 x10^3/uL (0.0-1.1); MONO % 9 % (0-9); NEUT % 50 % (31-73); PLATELET COUNT 248 x10^3/uL (140-400); RED BLOOD COUNT 3.88 x10^6/uL (3.50-5.40); RED CELL DISTRIBUTION WIDTH 14.3 % (11.5-14.5)
[2018-09-10 07:34] LABS: CALCIUM 8.2 mg/dL (8.5-10.1); CREATININE 0.7 mg/dL (0.6-1.0); GFR 85.4; POTASSIUM 3.1 mmol/L (3.5-5.1)
[2018-09-10] MEDS ORDERED: POTASSIUM CHLORIDE 20 MEQ TABLET.ER. PO ONE (08:30)
[2018-09-10] MEDS: LACTOBACILLUS RHAMNOSUS GG 1 CAPSULE. PO SCH ×2 (08:33→20:02)
[2018-09-10] MEDS: clonazePAM 0.5 MG TABLET PO SCH ×2 (08:33→20:02)
[2018-09-10] MEDS: MORPHINE ER 30 MG TABLET.ER PO SCH ×2 (08:34→20:02)
[2018-09-10] MEDS ORDERED: ELECTROLYTE (NON-ICU) PROTOCOL MC PRN (09:15)
[2018-09-10 11:05] VITALS: BP 120/75
[2018-09-10 14:47] VITALS: BP 128/85
[2018-09-10] MEDS ORDERED: WARFARIN 3 MG TABLET. PO ONE (16:00)
[2018-09-10] MEDS: IV NORMAL SALINE 1,000ML 1,000 ML IV SCH (16:23)
--- NOTE | 2018-09-10 17:52 | PN ---
DATE: SUBJECTIVE: A 58-year-old female in with colitis. The patient is still having diarrhea. She finally started to have nurses count up. She had 8 bowel movements yesterday. PHYSICAL EXAMINATION: VITAL SIGNS: Blood pressure 110/60, although drops down below 100; respiratory rate 18; pulse 60; afebrile. GENERAL: The patient is alert and oriented. LUNGS: Diminished, but clear. CARDIOVASCULAR: Stable. ABDOMEN: Soft, diffuse tenderness. She says she feels a little better down there, but still having a lot of pain in that area. EXTREMITIES: No clubbing, cyanosis, or edema. NEUROLOGIC: I advised her to transfer, she refused at this time to be transferred to another facility. IMPRESSION: Colitis, abdominal pain, and diarrhea. C diff was negative. PLAN: Continue monitoring ____ on some form of budesonide. YASMANI SIMS MD DR: MALA/dann JOB#: [id number] / [id number]
[2018-09-10 20:00] VITALS: BP 116/77
[2018-09-10] MEDS: AMOXAPINE 50 MG PO SCH (20:02)
[2018-09-10] MEDS: BUDESONIDE 3 MG CAP.ER.24H. PO SCH (20:03)
[2018-09-10] MEDS: ZOLPIDEM 5 MG TABLET. PO SCH (20:03)
[2018-09-11] MEDS: IV NORMAL SALINE 1,000ML 1,000 ML IV SCH ×2 (02:01→14:33)
[2018-09-11 05:30] VITALS: BP 107/68
[2018-09-11 06:23] LABS: BASO % 0 % (0-3); EOS # 0.1 x10^3/uL (0.0-0.7); EOS % 2 % (0-3); HEMATOCRIT 36.3 % (36.0-47.0); HEMOGLOBIN 12.4 g/dL (12.0-15.5); LYMPH # 2.8 x10^3/uL (1.0-4.8); LYMPH % 48 % (24-48); MEAN CORPUSCULAR HEMOGLOBIN 31 pg (25-35); MEAN CORPUSCULAR HGB CONC 34 g/dL (31-37); MEAN CORPUSCULAR VOLUME 90 fL (79-100); MONO # 0.5 x10^3/uL (0.0-1.1); MONO % 8 % (0-9); NEUT # 2.4 x10^3uL (1.8-7.7); NEUT % 42 % (31-73); PLATELET COUNT 263 x10^3/uL (140-400); RED BLOOD COUNT 4.05 x10^6/uL (3.50-5.40); RED CELL DISTRIBUTION WIDTH 15.2 % (11.5-14.5); WHITE BLOOD COUNT 5.8 x10^3/uL (4.0-11.0)
[2018-09-11 06:31] LABS: CALCIUM 8.6 mg/dL (8.5-10.1); CREATININE 0.7 mg/dL (0.6-1.0); GFR 85.4; POTASSIUM 3.5 mmol/L (3.5-5.1)
[2018-09-11] MEDS: LACTOBACILLUS RHAMNOSUS GG 1 CAPSULE. PO SCH ×2 (07:52→20:44)
[2018-09-11] MEDS: BUDESONIDE 3 MG CAP.ER.24H. PO SCH ×2 (07:53→20:46)
[2018-09-11] MEDS: clonazePAM 0.5 MG TABLET PO SCH ×2 (07:53→20:45)
[2018-09-11] MEDS: MORPHINE ER 30 MG TABLET.ER PO SCH ×2 (07:53→20:45)
[2018-09-11] MEDS ORDERED: DIPHENOXYLATE/ATROPINE TABLET. PO PRN (10:30)
[2018-09-11 11:00] VITALS: BP 116/70
[2018-09-11] MEDS: LIPASE/PROTEAS/AMYLAS 10/32/42 CAPSULE.DR. PO SCH ×2 (12:06→16:56)
[2018-09-11 15:04] VITALS: BP 116/71
[2018-09-11] MEDS ORDERED: WARFARIN 5 MG TABLET. PO ONE (16:00)
[2018-09-11 19:04] VITALS: BP 133/75
[2018-09-11] MEDS: AMOXAPINE 50 MG PO SCH (20:45)
[2018-09-11] MEDS: ZOLPIDEM 5 MG TABLET. PO SCH (20:45)
[2018-09-11 23:29] VITALS: BP 95/62
--- NOTE | 2018-09-12 00:28 | PN ---
DATE: SUBJECTIVE: A 58-year-old female in with abdominal pain, colitis. The patient is refusing to be transferred. The patient otherwise still having 5 stools a day, still have abdominal pain. Try her on a combination of budesonide as well as other medication to see if we can help her with her problem there. Otherwise, the patient is resting fairly comfortably, still complaining of abdominal pain. OBJECTIVE: VITAL SIGNS: The patient's blood pressure that of 110/70, respiratory rate 20, pulse 70, afebrile. GENERAL: The patient is alert and oriented. LUNGS: Diminished, but clear. CARDIOVASCULAR: Stable. ABDOMEN: Soft, but very tender in that mid to left lower quadrant area, slight guarding without rebounding. Positive bowel sounds, hyperactive. NEUROLOGIC: Depressed affect. IMPRESSION: Colitis, abdominal pain. PLAN: Continue to monitor her accordingly and make further evaluation as indicated. YASMANI SIMS MD DR: MALA/dann JOB#: [id number] / [id number]
[2018-09-12 05:17] VITALS: BP 120/72
[2018-09-12] MEDS: LACTOBACILLUS RHAMNOSUS GG 1 CAPSULE. PO SCH (08:07)
[2018-09-12] MEDS: LIPASE/PROTEAS/AMYLAS 10/32/42 CAPSULE.DR. PO SCH (08:07)
[2018-09-12] MEDS: clonazePAM 0.5 MG TABLET PO SCH (08:07)
[2018-09-12] MEDS: IV NORMAL SALINE 1,000ML 1,000 ML IV SCH (08:07)
[2018-09-12] MEDS: MORPHINE ER 30 MG TABLET.ER PO SCH (08:08)
[2018-09-12] MEDS: BUDESONIDE 3 MG CAP.ER.24H. PO SCH (08:08)
[2018-09-12 08:26] LABS: CALCIUM 8.2 mg/dL (8.5-10.1); CREATININE 0.7 mg/dL (0.6-1.0); GFR 85.4; POTASSIUM 3.8 mmol/L (3.5-5.1)
--- NOTE | 2018-09-19 14:45 | DS ---
DATE OF DISCHARGE: 09/12/2018 HOSPITAL COURSE: A 58-year-old female came in with severe abdominal pain. The patient was having problems with the pain. She was not able to control it as an outpatient. She was being treated for this as an outpatient. She required IV antibiotic therapy. She had been placed on the IV metronidazole. She made reasonably good progress with that. She had a repeat CT scan that demonstrated wall thickening with history of colitis. She is going to follow up with Dr. Oliva her GI specialist. Otherwise, she is resting fairly comfortably, making fairly good progress overall and the patient made relatively good progress. Her INRs were followed by the pharmacy. C. diff was negative. O and P was negative. At any case, the patient made good progress. She was discharged home. She will stay on a soft diet. Follow up with Dr. Oliva. Decreased activity. See MRAD. IMPRESSION: Recurrent diverticulitis, recurrent colitis, recurrent diarrhea, hypertension, hypokalemia, dehydration. YASMANI SIMS MD DR: MALA/dann JOB#: [id number] / [id number]
== END 2018-09-12 10:20 | disposition home or self-care (01) | DRG 392 ==
LOC: 1 SOUTH 16:46
PROVIDERS: ADMIT Family Medicine; ATTEND Family Medicine
DX: K52.9 Noninfective gastroenteritis and colitis, unspecified (principal); K57.92 Diverticulitis of intestine, part unspecified, without perforation or abscess without bleeding; E86.0 Dehydration; I10 Essential (primary) hypertension; Z79.899 Other long term (current) drug therapy; Z88.8 Allergy status to other drugs, medicaments and biological substances; E87.6 Hypokalemia
CPT/HCPCS: 36415; 74177; 80048; 80053; 81001; 82274; 82436; 83605; 84133; 84300; 85025; 85610; 85730; 87045; 87177; 87493; J3010; J3490; Q9967; J7030

== ENCOUNTER → 2020-10-17 | Outpatient (CLI) | payer MEDICARE, OTHER ==
[~2020-10-17] MED LIST changes: +AMLO-186 PO; -AMLO5TAB10 PO; -CLON0.5T11 PO; +CLON0.5T4 PO; +LACT1CAP21 PO
--- NOTE | 2020-10-21 15:59 | RAD ---
[facility] BILAT SCREEN+TERRI 10/17/2020 2:32 PM INDICATION: Asymptomatic screening mammogram. COMPARISON: None available TECHNIQUE: 3D tomosynthesis was performed in CC and MLO projections. 2D views were obtained from the 3D data. CAD was utilized as needed. FINDINGS: Breast density: Category B: There are scattered areas of fibroglandular density. Right breast: There are no suspicious microcalcifications, masses or areas of architectural distortio n. Left breast: There are no suspicious microcalcifications, masses or areas of architectural distortion . IMPRESSION: Negative bilateral mammogram. BI-RADS category: 1; Negative Recommendations: Recommend annual screening mammography in one year. Electronically signed by: Zulay Oneil MD (10/21/2020 3:57 PM) [id number]
== END ==
LOC: MAMMO 14:21
PROVIDERS: ATTEND Family Medicine
DX: Z12.31 Encounter for screening mammogram for malignant neoplasm of breast (principal)
CPT/HCPCS: 77063; 77067